=== PATIENT | female | born 1980 | race American Indian/Alaskan Native ===

== ENCOUNTER 2017-04-09 12:24 | Day surgery (SDC) | payer OTHER ==
--- NOTE | 2017-04-09 12:38 | Short Stay Summary ---
Short Stay Documentation Date of service: 04/09/17 Narrative H&P: Pt is a 36yo BF LMP 03/18/17 presents for surgical evaluation and treatment of a left ovarian cyst. Pt complains of left sided pelvic pain and Pelvic u/s showed a multiloculated complex left ovarian cyst 6.3 x 4.8 x 4.2cm. CA125 - WNL. She is therefore scheduled for a Laproscopic Left Ovarian cystectomy. - History Principal diagnosis: Left ovarian cyst H&P: obtained from office Past Medical History: No medical history Past Surgical History: No surgical history Social history: no significant social history, single - Allergies and Medications Current Medications: Allergies No Known Allergies Allergy (Unverified 04/05/17 09:02) Home Medications Medication Instructions Recorded Confirmed Last Taken Type No Known Home Medications [No 04/05/17 04/05/17 Unknown History Reported Home Medications] - Physical exam General appearance: no acute distress Integumentary: no rash HEENT: Atraumatic Lungs: Clear to auscultation Breasts: deferred Heart: Regular rate Gastrointestinal: normal Female Genitourinary: deferred Rectal Exam: deferred Extremities: no ischemia Neurological: Normal gait - Brief post op/procedure progress note Date of procedure: 04/09/17 Pre-op diagnosis: 1. Pelvic pain 2. Left ovarian cyst Post-op diagnosis: same Procedure: Laproscopic Left Ovarian Cystectomy Anesthesia: GETA Findings: A normal uterus with normal tubes bilaterally. A normal right ovary. An enlarged cystic left ovary with multiple cysts including a paratubal cyst. Approximately 30cc's of blood in the cul-de-sac. Surgeon: RAYMOND SMITH Estimated blood loss: 50-100ml Pathology: none (left ovarian cysts) Specimen disposition: to lab Condition: stable - Hospital course Hospital course: Unremarkable. - Disposition Condition at discharge: Good Disposition: DC-01 TO HOME OR SELFCARE - Discharge Diagnoses (1) Pelvic pain Status: Resolved (2) Ovarian cyst, left Status: Resolved Short Stay Discharge Plan Activity: no restrictions Diet: regular Wound: open to air, keep clean and dry Follow up with: CHRISTINE WHITE [Other] - 7 Days RAYMOND SMITH MD [Staff Physician] - 14 Days Prescriptions: HYDROcodone/APAP 5-325 [[place] 5/325] 1 each PO Q6HR PRN #20 tablet PRN Reason: Pain
[2017-04-09] MEDS ORDERED: LACTATED RINGERS 1,000 ML IV SCH (13:00)
[2017-04-09] MEDS ORDERED: ANCEF/STERILE WATER 2 GM/20 ML 2 GM/20 ML SYRINGE IV NR (13:00)
--- NOTE | 2017-04-09 13:43 | Anesthesia Consultation ---
Anesthesia Consult and Med Hx Date of service: 04/09/17 - Airway Anesthetic Teeth Evaluation: Good ROM Head & Neck: Adequate Mental/Hyoid Distance: Adequate Mallampati Class: Class II Intubation Access Assessment: Probably Good - Pre-Operative Health Status ASA Pre-Surgery Classification: ASA1 Proposed Anesthetic Plan: General - Central Nervous System Hx Psychiatric Problems: No - Other Systems Hx Cancer: No - Additional Comments Anesthesia Medical History Comments: healthy
--- NOTE | 2017-04-09 13:43 | Anesthesia Day of Surgery ---
Anesthesia Day of Surgery - Day of Surgery Patient Examined: Yes Patient H&P Reviewed: Yes Patient is NPO: Yes
[2017-04-09] MEDS: VERSED IV NR ×2 (13:57→15:56)
[2017-04-09] MEDS ORDERED: PEPCID IV NR (14:00)
[2017-04-09 14:13] LABS: Hematocrit 37.7 % (30.3-42.9); Hemoglobin 12.1 gm/dl (10.1-14.3)
[2017-04-09] MEDS ORDERED: ZOFRAN IV PRN (14:19)
[2017-04-09] MEDS ORDERED: DILAUDID IV PRN (14:19)
[2017-04-09] MEDS ORDERED: PERCOCET 5/325 PO PRN (14:19)
[2017-04-09] MEDS ORDERED: DIPRIVAN 10 MG/ML IV ONE (15:09)
[2017-04-09] MEDS ORDERED: SUBLIMAZE ONE (15:10)
[2017-04-09] MEDS ORDERED: ZEMURON IV ONE (16:45)
[2017-04-09] MEDS ORDERED: DECADRON ONE (16:45)
[2017-04-09] MEDS ORDERED: XYLOCAINE MPF 2% ONE (16:45)
[2017-04-09] MEDS ORDERED: ROBINUL ONE (16:46)
[2017-04-09] MEDS ORDERED: ZOFRAN ONE (16:46)
[2017-04-09] MEDS ORDERED: NEOSTIGMINE ONE (16:46)
[2017-04-09] MEDS ORDERED: LACTATED RINGERS 1,000 ML ONE (17:15)
[2017-04-09] MEDS ORDERED: TORADOL ONE (17:32)
[2017-04-09] MEDS ORDERED: MARCAINE 0.25% INFILTRATI ONE (17:36)
[2017-04-09] MEDS ORDERED: DILAUDID ONE (17:43)
--- NOTE | 2017-04-09 18:10 | Operative Report ---
Operative Report Operative Report: Date of procedure: 04/09/2017 Pre-operative diagnosis: 1. Pelvic pain 2. Left ovarian cyst Post-operative diagnosis: Same Procedure name(s): Laparoscopic left ovarian cystectomy Surgeon: Alberto Omer MD Logistics Lead: None Anesthesia: Gen. endotracheal intubation by Dr. Powers EBL: 30 mL Findings: A normal uterus with normal tubes bilaterally. A normal right ovary. A multicystic left ovary with a left paratubal cyst. Approximately 30 mL of blood in the cul-de-sac Procedure: After the patient was correctly identified, she was prepped and draped in the usual sterile fashion and placed in the dorsolithotomy position. First the bladder was catheterized using a King catheter. Next the speculum was placed in the vaginal vault and the anterior lip of the cervix was grasped using single-tooth tenaculum. The uterine manipulator was then placed and the tenaculum and speculum were removed. Attention was then turned to the abdomen where first a periumbilical incision was made using the skin knife, and the Optiview trocar was inserted under direct visualization. After an adequate amount of abdominal insufflation, visualization of pelvic organs found the uterus to be normal, the right fallopian tube and ovary were normal, the left fallopian tube had a small paratubal cyst, and the left ovary had multiple cysts. There was approximately 30 mL's of blood in the cul-de-sac. Next the suprapubic incision and the left lateral incision was made through which 5 mm trochars were placed in order to aid in manipulation of the pelvic organs. First the blood was suctioned from the peritoneal cavity. Next the left fallopian tube was grasped and the paratubal cyst was excised using the tripolar cautery. The left ovary was also incised and the multiple cysts were removed and sent to pathology. Copious amounts of irrigation was then performed , and after good hemostasis was assured, the Tisseal sealant was sprayed over the left ovarian cystectomy site. At this point the procedure was considered complete. All instruments removed from abdomen, the abdomen was deflated, and the periumbilical incision was closed using 0 Vicryl suture in a figure-of- eight configuration of the fascia followed by 4 Vicryl suture in a subcuticular fashion on the skin. The patient tolerated the procedure well, and was transported to recovery room in stable condition.
[2017-04-09] MEDS ORDERED: NORCO 5/325 PO PRN (18:27)
[2017-04-09 21:05] VITALS: BP 115/78
== END 2017-04-09 20:05 | disposition home or self-care (01) ==
LOC: OR 12:24
PROVIDERS: ATTEND Obstetrics & Gynecology
DX: N83.202 Unspecified ovarian cyst, left side (principal)
CPT/HCPCS: 36415; 58662; 81025; 85014; 85018; 88305; C9250; J0690; J1100; J1170; J1885; J2250; J2405; J2704; J2710; J3010; J7120